=== PATIENT | female | born 1995 | race Caucasian/White ===

== ENCOUNTER 2021-06-22 10:30 | Emergency (ER) | payer OTHER ==
[2021-06-22 10:44] VITALS: BP 125/75
--- NOTE | 2021-06-22 11:32 | ED Physician Documentation ---
History of Present Illness - Stated complaint Stated Complaint: N/V DIZZINESS - Chief complaint Chief Complaint: General - History obtained from History obtained from: Patient - Additonal information Additional information: Patient received her 2nd Moderna vaccine yesterday at around 6:30pm. She felt hot and cold all night and woke up this AM w/ headache, bodyaches, n/v, and dizziness. She went to clinic but they were concerned about her dizziness so sent her to the ER. A states she is currently feeling slightly better but continues to feel weak and mildly dizzy. She is not ataxic, she has no focal neuro changes, no vision changes, no focal weakness. She has not been able to tolerate any p.o. today. She denies any cough or cold symptoms, no chest pain or dyspnea, no abdominal pain, no diarrhea, no urinary symptoms. She has IUD and denies chance of . She is otherwise healthy at baseline. Review of Systems Constitutional: reports: Fever, Chills, Myalgias, Fatigue Eyes: reports: Reviewed and negative Ears: reports: Reviewed and negative Nose: reports: Reviewed and negative Throat: reports: Reviewed and negative Cardiac: reports: Reviewed and negative Respiratory: reports: Reviewed and negative GI: reports: Nausea, Vomiting. denies: Abdominal Pain, Abdominal Swelling, Constipation, Diarrhea, Hematemesis : reports: Reviewed and negative Musculoskeletal: reports: Reviewed and negative Neurologic: reports: Generalized weakness, Headache. denies: Focal weakness, Numbness, Difficulty speaking Psychiatric: reports: Reviewed and negative Endocrine: reports: Reviewed and negative PD PAST MEDICAL HISTORY - Past Medical History Past Medical History: No - Present Medications Home Medications: Ambulatory Orders Medication Instructions Recorded Confirmed Ondansetron Odt [Zofran] 4 mg TL Q6H PRN #10 tablet 06/22/21 Venlafaxine HCl [Effexor Xr] 112.5 mg PO DAILY 06/22/21 06/22/21 - Allergies Allergies/Adverse Reactions: Allergies Allergy/AdvReac Type Severity Reaction Status Date / Time No Known Drug Allergies Allergy Verified 06/22/21 10:43 PD ED PE NORMAL - Vitals Vital signs reviewed: Yes - General General: Alert and oriented X 3, No acute distress, Well developed/nourished - HEENT HEENT: Atraumatic, Pharynx benign - Neck Neck: Supple, no meningeal sign, No JVD - Cardiac Cardiac: RRR, No murmur - Respiratory Respiratory: No respiratory distress, Clear bilaterally - Abdomen Abdomen: Normal bowel sounds, Soft, Non tender, Non distended. No: No organomegaly, Other - Derm Derm: Normal color, Warm and dry, No rash - Extremities Extremities: No deformity, No tenderness to palpate, Normal ROM s pain, No edema - Neuro Neuro: Alert and oriented X 3, No motor deficit, No sensory deficit, Normal speech Eye Opening: Spontaneous Motor: Obeys Commands Verbal: Oriented GCS Score: 15 - Psych Psych: Normal mood, Normal affect Results - Vitals Vitals: Vital Signs - 24 hr 06/22/21 10:40 Temperature 36.4 C L Heart Rate 66 Respiratory 16 Rate Blood Pressure 125/75 O2 Saturation 100 Oxygen O2 Source Room air PD MEDICAL DECISION MAKING - ED course Complexity details: considered differential, d/w patient ED course: 18-year-old female who received her second maternal Covid vaccine yesterday at around 6:30 PM and subsequently developed symptoms as noted per HPI. Patient is well-appearing, stable vital signs and is feeling slightly better at this time. I suspect her symptoms are related to common adverse reactions to the vaccine and I expect him to dissipate in the next 1 to 2 days. Advised patient to rest today she may take Zofran as needed for nausea and she has meclizine at home but she will take with dizziness. If symptoms worsen or persist beyond 1 to 2 days patient advised to return to the ER for further evaluation. Patient agreed additional work-up not necessary at this time and supportive measures reviewed. Departure - Departure Disposition: 01 Home, Self Care Clinical Impression: Vaccine reaction Qualifiers: Encounter type: initial encounter Qualified Code(s): T50.Z95A - Adverse effect of other vaccines and biological substances, initial encounter Condition: Good Prescriptions: Ondansetron Odt [Zofran] 4 mg TL Q6H PRN #10 tablet PRN Reason: Nausea / Vomiting Comments: Please rest today, try zofran as needed for nausea, and take meclizine if needed for dizziness. I expect your symptoms will improve within about 24 hours. If you have new or worsening symptoms, or they persist beyond 2-3 days, please return for follow up. Forms: Activity restrictions
[2021-06-22 11:54] LABS: BILIRUBIN,URINE NEGATIVE (NEGATIVE); GLUCOSE, URINE (UA) NEGATIVE (NEGATIVE); KETONES,URINE (UA) NEGATIVE (NEGATIVE); LEUKOCYTE ESTERASE, URINE NEGATIVE (NEGATIVE); NITRITE,URINE NEGATIVE (NEGATIVE); OCCULT BLOOD,URINE SMALL (NEGATIVE); PROTEIN,URINE NEGATIVE (NEGATIVE); UROBILINOGEN,URINE 0.2 (NORMAL) E.U./dL (NORMAL)
[2021-06-22 11:56] LABS: CLARITY,URINE CLEAR (CLEAR)
[2021-06-22 11:57] LABS: HCG UR QUAL NEGATIVE
[2021-06-22 12:13] LABS: BACTERIA,URINE Rare /HPF (None Seen); MUCUS,URINE Moderate Strands; RBC,URINE 0-5 /HPF (0-5); SQUAMOUS EPITHELIAL CELL,UR MOD Squamous (<= Few)
== END 2021-06-22 12:14 | disposition home or self-care (01) ==
LOC: ED 10:30
DX: R42 Dizziness and giddiness (principal); R11.2 Nausea with vomiting, unspecified; R53.1 Weakness; T50.B95A Adverse effect of other viral vaccines, initial encounter; Y84.8 Other medical procedures as the cause of abnormal reaction of the patient, or of later complication, without mention of misadventure at the time of the procedure
CPT/HCPCS: 81001; 81003; 81025; 87086; 99283; 99284

== ENCOUNTER 2022-05-18 14:26 | Outpatient (CLI) | payer OTHER ==
--- NOTE | 2022-05-18 16:50 | MRI Report ---
PROCEDURE: Elbow RT W/O INDICATIONS: ELBOW PAIN TECHNIQUE: Noncontrast coronal proton density fast spin echo and T2 fast spin echo with fat saturation, axial an d sagittal T1 spin echo and T2 fast spin echo with fat saturation through the elbow. COMPARISON: None. FINDINGS: Image quality: Excellent. Lateral structures: The lateral ulnar collateral ligament and radial collateral ligament both appear intact. The overlying common extensor tendon also appears normal. Medial structures: The ulnar collateral ligament appears intact. The overlying common flexor tendon appears normal. The ulnar nerve appears normal in size and signal within the cubital tunnel. Anterior structures: The biceps and brachialis tendons both appear intact as they insert onto the pr oximal radius and ulna, respectively. No bicipitoradial bursal fluid. The median and radial neurova scular bundles appear normal; no focal muscle atrophy to suggest nerve impingement. Posterior structures: The triceps tendon appears intact. No olecranon bursal fluid. Bone and cartilage: No bone marrow contusions or fractures. No osteochondral injuries. IMPRESSION: This is a normal study. Reviewed by: Gaurav Pina MD on 05/18/2022 4:48 PM PDT Approved by: Gaurav Pina MD on 05/18/2022 4:48 PM PDT Station ID: [id number]
== END 2022-05-18 14:27 | disposition home or self-care (01) ==
LOC: DI 14:26
PROVIDERS: ATTEND Student in an Organized Health Care Education/Training Program
DX: M25.521 Pain in right elbow (principal); Z87.828 Personal history of other (healed) physical injury and trauma